=== PATIENT | male | born 1940 | race Caucasian/White ===

== ENCOUNTER 2024-04-12 09:05 | Outpatient (CLI) | payer MEDICARE ==
[2024-04-12 11:17] LABS: Hemoglobin 13.7 g/dL (13.5-17.5)
[2024-04-12 12:00] LABS: Anion Gap 11 mmol/L (10-20); BUN (Urea Nitrogen) 16 mg/dL (8.4-25.7); Calc. Creatinine Clearance 0 mL/min (70-130); Calcium 9.4 mg/dL (7.8-10.44); Carbon Dioxide 25 mmol/L (23-31); Chloride 111 mmol/L (98-107); Estimated GFR 77; Glucose 88 mg/dL (83-110); Sodium 143 mmol/L (136-145)
== END 2024-04-12 09:06 | disposition home or self-care (01) ==
LOC: CSHLAB 09:05
PROVIDERS: ATTEND Otolaryngology Otolaryngic Allergy
DX: Z01.818 Encounter for other preprocedural examination (principal); G47.33 Obstructive sleep apnea (adult) (pediatric)
CPT/HCPCS: 80048; 85014; 85018; 93005; 93010

== ENCOUNTER 2024-04-17 07:04 | Day surgery (SDC) | payer MEDICARE ==
[2024-04-12 09:40] VITALS: BMI 25.3
[2024-04-17] MEDS ORDERED: Lidocaine 1% PF 5 ML VIAL ONE (09:33)
[2024-04-17] MEDS ORDERED: Ondansetron PF 4 MG/2 ML Vial ONE (09:33)
[2024-04-17] MEDS ORDERED: Rocuronium Bromide 10 MG/ML (10ML VIAL) ONE (09:33)
[2024-04-17] MEDS ORDERED: Dexamethasone 20 MG/5 ML VIAL ONE (09:33)
[2024-04-17] MEDS ORDERED: Fentanyl 250 MCG/5 ML VIAL ONE (09:33)
[2024-04-17] MEDS ORDERED: PROPOFOL 40 ML ONE (09:36)
[2024-04-17] MEDS ORDERED: CEFAZOLIN 2 GM VIAL ONE (09:42)
[2024-04-17] MEDS ORDERED: Vancomycin 1 GM VIAL ONE (09:43)
[2024-04-17] MEDS ORDERED: PHENYLEPHRINE-NS 100 MCG/ML 10 ML SYRINGE ONE (10:15)
[2024-04-17] MEDS ORDERED: EPINEPHrine 1 MG/ML AMP ONE (10:40)
[2024-04-17] MEDS ORDERED: ePHEDrine Sulfate 50 MG/10 ML VIAL ONE (11:04)
== END 2024-04-17 13:50 | disposition home or self-care (01) ==
LOC: CSHSDC 07:04
PROVIDERS: ATTEND Otolaryngology Otolaryngic Allergy
PROC: 4A1ZXQZ Monitoring of Sleep, External Approach (ICD-10-PCS; principal; 2024-04-17)
PROC: 0JH Subcutaneous Tissue and Fascia, Insertion (ICD-10-PCS; 2024-04-17)
PROC: 00HE0MZ Insertion of Neurostimulator Lead into Cranial Nerve, Open Approach (ICD-10-PCS; 2024-04-17)
DX: G47.33 Obstructive sleep apnea (adult) (pediatric) (principal); Z90.49 Acquired absence of other specified parts of digestive tract
CPT/HCPCS: 42975; 64582; 70360; 71046; J1100; J2405; J2704; J3010; J3370; C1787; C1820; C1898; J0171

== ENCOUNTER 2024-11-05 08:10 | Outpatient (CLI) | payer MEDICARE | END 2024-11-05 08:11 | disposition home or self-care (01) | LOC: CSHSLEEP 08:10 | PROVIDERS: ATTEND Internal Medicine Critical Care Medicine | DX: G47.33 Obstructive sleep apnea (adult) (pediatric) (principal); Z96.82 Presence of neurostimulator; G47.61 Periodic limb movement disorder | CPT/HCPCS: 95810; 95977 ==